=== PATIENT | male | born 1995 | race Caucasian/White ===

== ENCOUNTER 2019-03-10 13:07 | Emergency (ER) | payer SELFPAY ==
[~2019-03-10] VITALS: Ht 157.5 cm; Wt 59.0 kg
[2019-03-10 13:17] VITALS: Ht 157.5 cm; Wt 59.0 kg
[2019-03-10 13:59] LABS: BASOPHIL % 0.4 % (0-2); PLATELET COUNT 178 x10^3mcL (130-400); RED CELL DISTRIBUTION WIDTH 12.5 % (11.5-14.5)
[2019-03-10 14:52] LABS: CALCIUM 8.3 mg/dL (8.5-10.1); CARBON DIOXIDE 29.8 mmol/L (21-32); CHLORIDE SERUM 105 mmol/L (98-107); CREATININE SERUM 0.7 mg/dL (0.7-1.3); GFR1 > 60 mL/min; GLUCOSE SERUM 122 mg/dL (74-106); POTASSIUM SERUM 4.7 mmol/L (3.5-5.1); SODIUM SERUM 140 mmol/L (136-145)
[2019-03-10 15:02] LABS: ALKALINE PHOSPHATASE 86 U/L (46-116); ALT/SGPT 29 U/L (16-63); AST/SGOT 21 U/L (15-37); BILIRUBIN TOTAL 0.4 mg/dL (0.20-1.00); TOTAL PROTEIN, SERUM 6.6 g/dL (6.4-8.2)
[2019-03-10 15:11] LABS: ALBUMIN 3.2 g/dL (3.4-5.0)
[2019-03-10 15:15] LABS: UA SPECIFIC GRAVITY >=1.030 (1.005-1.035); microscopic required? YES; urine erythrocyte NEGATIVE (NEGATIVE)
[2019-03-10 15:54] LABS: AMPHETAMINE QUAL UR POSITIVE (See below)
[2019-03-10 16:29] VITALS: BP 106/57
== END 2019-03-10 16:30 | disposition home or self-care (01) ==
LOC: ED 13:07
DX: T40.1X1A Poisoning by heroin, accidental (unintentional), initial encounter (principal); S61.511A Laceration without foreign body of right wrist, initial encounter; F17.210 Nicotine dependence, cigarettes, uncomplicated; F15.20 Other stimulant dependence, uncomplicated; Y92.89 Other specified places as the place of occurrence of the external cause
CPT/HCPCS: 36415; 90715; 99406; G0480; J7030